=== PATIENT | male | born 1995 | race Asian ===

== ENCOUNTER 2023-10-14 13:57 | Emergency (ER) | payer OTHER, SELFPAY ==
[2023-10-14 14:01] VITALS: BP 139/66; PULSE 77; RESP 17; TEMP 36.6; O2SAT 97; BMI 26.6
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
--- NOTE | 2023-10-14 14:15 | PC.NURSE ---
pH of eye is 8. Ok per Renzo, no treatment necessary.
[2023-10-14] MEDS: PROPARACAINE 0.5% OPHTH SOL 1 DROPS EYE-LEFT (15:39)
[2023-10-14] MEDS: FLUORESCEIN 1 MG STRIP EYE-LEFT (15:40)
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
[2023-10-14 16:05] VITALS: BP 111/57; RESP 16; O2SAT 99
== END 2023-10-14 16:03 | disposition home or self-care (01) ==
PROVIDERS: Emergency Provider Student in an Organized Health Care Education/Training Program
DX: S05.92XA Unspecified injury of left eye and orbit, initial encounter (principal); S05.91XA Unspecified injury of right eye and orbit, initial encounter; Z77.098 Contact with and (suspected) exposure to other hazardous, chiefly nonmedicinal, chemicals
CPT/HCPCS: 70480; 70486; 99284